=== PATIENT | female | born 1940 | race Caucasian/White ===

== ENCOUNTER 2016-05-13 17:37 | Observation (INO) ==
--- NOTE | 2016-05-13 18:13 | Emergency Department Note ---
START Narrative - START START: I examined this patient and my medical decision-making was reviewed with the DOUGHNUT DOUGH MIXER/PA/Advanced Practice Nurse/Resident Physician. I agree with the documented findings, disposition and treatment plan as described except to the extent set forth below. ED attending note: Patient seen with emergency medicine resident Dr. Floyd. Please see a copy of his dictation for details of the H&P, evaluation and management, and emergency department disposition of this patient. We independently had [id number] contact with the patient. Briefly: A 75-year-old nonsmoking female no primary pulmonary disease disorder by EMS from local urgent care for 1 month of exertional dyspnea. No sputum fever or chills. Physical examination is benign. Waiting on lab work x-rays and EKG. Patient stable, disposition pending
[2016-05-13 18:30] LABS: Basophils % 0.3 %; Eosinophils % 0.3 %; Hematocrit 34.8 % (35.3-44.9); Hemoglobin 10.7 g/dL (11.5-15.4); Immature Granulocytes % 0.7 % (0-4); Lymphocytes # 1.8 K/mcL (0.6-4.6); Mean Corpuscular HGB Conc 30.7 g/dL (31.6-35.5); Mean Corpuscular Hemoglobin 26.6 pg (28.0-33.3); Mean Corpuscular Volume 86.4 fL (83.0-100.0); Mean Platelet Volume 11.8 fL (9.4-12.4); Monocytes # 0.5 K/mcL (0.0-1.3); Monocytes % 5.3 %; Neutrophils # 7.4 K/mcL (1.6-8.9); Platelet Count 219 K/mcL (140-400); Red Blood Count 4.03 M/mcL (3.82-4.97); Red Cell Distribution Width 15.7 % (11.5-14.5); Segmented Neutrophils % 75.4 %
--- NOTE | 2016-05-13 18:33 | Emergency Department Note ---
Disposition Clinical Impression: Dyspnea, Pulmonary embolism Disposition: Admitted As Inpatient Condition: Good Referrals: Alexander Gallagher MD [Primary Care Provider] - Forms: ED Satisfaction Letter Time of Disposition: 19:46 SOB HPI - General Chief Complaint: ED Shortness of Breath/Dyspnea Stated Complaint: [id number] Time Seen by Provider: 05/13/16 17:40 Source: patient, EMS Mode of arrival: ambulatory Limitations: no limitations Nursing Notes Reviewed: Yes Vital Signs Reviewed: Yes - History of Present Illness 75-year-old female sent from urgent care for 1 month of exertional dyspnea. Patient reports that she has had difficulty with exertion over the last month. This is not associated with any chest pressure or shortness of breath. This is not worse when lying flat. There is no associated cough. There is no fever. There are no sick contacts. Patient has no history of COPD or emphysema or CHF. She denies any nausea, vomiting, diaphoresis. She denies any swelling. She denies any GI or symptoms. - Related Data Home Medications Medication Instructions Recorded Confirmed Atorvastatin Calcium [Lipitor] 80 mg PO HS 05/13/16 05/13/16 Ferrous Sulfate 325 mg PO DAILY 05/13/16 05/13/16 HYDROcodone/Acet 7.5/325 mg [[place] 1 tab PO TID PRN 05/13/16 05/13/16 7.5-325 mg] LORazepam [Ativan] 0.25 mg PO DAILY 05/13/16 05/13/16 LORazepam [Ativan] 0.5 mg PO HS 05/13/16 05/13/16 Montelukast [Singulair] 10 mg PO HS 05/13/16 05/13/16 Nadolol [Corgard] 40 mg PO HS 05/13/16 05/13/16 Omeprazole [PriLOSEC] 40 mg PO DAILY 05/13/16 05/13/16 PredniSONE 10 mg PO DAILY PRN 05/13/16 05/13/16 Sertraline [Zoloft] 25 mg PO DAILY 05/13/16 05/13/16 Valsartan/Hydrochlorothiazide 1 each PO DAILY 05/13/16 05/13/16 [Diovan Hct 320-25 mg Tablet] Allergies Allergy/AdvReac Type Severity Reaction Status Date / Time ampicillin Allergy Nausea Verified 05/13/16 15:56 nalbuphine [From Nubain] Allergy Nausea Verified 05/13/16 15:56 Penicillins Allergy Hives Verified 05/13/16 15:56 Sulfa (Sulfonamide Allergy Rash Verified 05/13/16 15:56 Antibiotics) All systems ED: reviewed and negative except as stated. Past Medical History - Past Medical History Attestation: Yes The following information was validated with the patient. Source: patient Medical history: Reports: hyperlipidemia, hypertension, renal disease Psychiatric history: Reports: anxiety - Social History Smoking Status: Never smoker Smokeless Tobacco Status: No Alcohol use: Reports: none Drug use: Reports: none Physical Exam - Head Head exam: atraumatic, normocephalic, normal inspection - Eye Eye exam: Present: normal appearance, PERRL, EOMI - ENT ENT exam: normal exam, normal oropharynx, mucous membranes moist - Neck Neck exam: Present: normal inspection, full ROM, trachea midline - Chest Chest inspection: Present: normal inspection, symmetric chest wall rise - Respiratory Respiratory exam: Clear to auscultation bilaterally without wheezes rales or rhonchi Cardiovascular Cardiovascular exam: Present: regular rate, normal rhythm, normal heart sounds - Abdominal Exam Abdominal exam: Present: soft, Non-Tender. Absent: tenderness, distention, guarding, rebound, rigidity - Extremities Exam Extremities exam: Present: normal inspection, full ROM - Expanded Lower Extremity Exam Hip/Pelvis exam: Present: normal inspection, full ROM - Back Exam Back exam: Present: normal inspection, full ROM. Absent: tenderness, CVA tenderness (R), CVA tenderness (L) - Neurological Exam Neurological exam: Present: alert, oriented X3, CN II-XII intact - Psychiatric Psychiatric exam: Present: normal affect, normal mood - Skin Skin exam: Present: warm, dry, intact, normal color - General Limitations: no limitations General appearance: alert, in no apparent distress Course - Reevaluation(s) Reevaluation #1: Chest x-ray from urgent care reviewed and was normal. Patient reports that urgent care physician was concerned for DVT given her shortness of breath. Wells score is 0. I understand this is not a rule out criteria, but patient has no risk factors for PE, signs of DVT, or abnormal vitals. Abdomen persistent dyspnea we will obtain a d-dimer. Reevaluation #2: D-dimer severely elevated over 7000. No findings on chest x-ray to account for this. She does not have any apparent DVT, but given her significantly elevated d-dimer with dyspnea I suspect that she likely has a pulmonary embolus. I give her 1 mg/kg of Lovenox to fully anticoagulate her. She does not have adequate kidney function this time to tolerate a CT of her chest. Admitting hospitalist is aware of this and agrees with rehydration overnight and likely CTA in the morning. She will receive a ventilation perfusion scan if she is unable to obtain a CTA tomorrow. Patient is stable for admission this time.. Accepted by [facility]. Time: 19:45 Vital Signs Temperature 98.1 F 05/13/16 17:37 Pulse Rate 70 05/13/16 17:37 Respiratory Rate 18 05/13/16 17:37 Blood Pressure 163/91 05/13/16 17:37 O2 Sat by Pulse Oximetry 92 L 05/13/16 17:37 Temperature 98.1 F 05/13/16 17:37 Pulse Rate 70 05/13/16 19:10 Respiratory Rate 18 05/13/16 19:10 Blood Pressure 139/72 05/13/16 19:10 O2 Sat by Pulse Oximetry 95 05/13/16 19:10 Oxygen Delivery Oxygen Delivery Room Air Shortness of Breath/Dyspnea - Lab Data Result diagrams: 05/13/16 18:09 05/13/16 18:09 Lab Results 05/13/16 05/13/16 05/13/16 Range/Units 18:09 18:09 18:09 WBC 9.8 (4.3-11.1) K/mcL RBC 4.03 (3.82-4.97) M/mcL Hgb 10.7 L (11.5-15.4) g/dL Hct 34.8 L (35.3-44.9) % MCV 86.4 (83.0-100.0) fL MCH 26.6 L (28.0-33.3) pg MCHC 30.7 L (31.6-35.5) g/dL RDW 15.7 H (11.5-14.5) % Plt Count 219 (140-400) K/mcL MPV 11.8 (9.4-12.4) fL Immature Gran % 0.7 (0-4) % Seg Neutrophils % 75.4 % Lymphocytes % 18.0 % Monocytes % 5.3 % Eosinophils % 0.3 % Basophils % 0.3 % Neutrophils # 7.4 (1.6-8.9) K/mcL Lymphocytes # 1.8 (0.6-4.6) K/mcL Monocytes # 0.5 (0.0-1.3) K/mcL Eosinophils # 0.0 (0.0-0.6) K/mcL Basophils # 0.0 (0.0-0.2) K/mcL D-Dimer (0-500) ng/mLFEU Sodium 143 (136-145) mEq/L Potassium 4.1 (3.5-4.5) mEq/L Chloride 109 (98-109) mEq/L Carbon Dioxide 21 (19-29) mEq/L BUN 27 H (7-20) mg/dL Creatinine 1.39 H (0.57-1.11) mg/dL Est GFR ( Amer) 45 L (> 60) Est GFR (Non-Af Amer) 37 L (> 60) BUN/Creatinine Ratio 19 (6-26) Glucose 103 H (70-99) mg/dL Calculated Osmolality 301 H (280-300) Calcium 9.7 (8.6-10.8) mg/dL Troponin I 0.02 (0-0.03) ng/mL 05/13/16 Range/Units 18:09 WBC (4.3-11.1) K/mcL RBC (3.82-4.97) M/mcL Hgb (11.5-15.4) g/dL Hct (35.3-44.9) % MCV (83.0-100.0) fL MCH (28.0-33.3) pg MCHC (31.6-35.5) g/dL RDW (11.5-14.5) % Plt Count (140-400) K/mcL MPV (9.4-12.4) fL Immature Gran % (0-4) % Seg Neutrophils % % Lymphocytes % % Monocytes % % Eosinophils % % Basophils % % Neutrophils # (1.6-8.9) K/mcL Lymphocytes # (0.6-4.6) K/mcL Monocytes # (0.0-1.3) K/mcL Eosinophils # (0.0-0.6) K/mcL Basophils # (0.0-0.2) K/mcL D-Dimer 7565 H (0-500) ng/mLFEU Sodium (136-145) mEq/L Potassium (3.5-4.5) mEq/L Chloride (98-109) mEq/L Carbon Dioxide (19-29) mEq/L BUN (7-20) mg/dL Creatinine (0.57-1.11) mg/dL Est GFR ( Amer) (> 60) Est GFR (Non-Af Amer) (> 60) BUN/Creatinine Ratio (6-26) Glucose (70-99) mg/dL Calculated Osmolality (280-300) Calcium (8.6-10.8) mg/dL Troponin I (0-0.03) ng/mL - Radiology Data Radiology results reviewed: Yes I reviewed the patient's radiology results. - EKG Data EKG attestation: Yes I reviewed and interpreted this EKG. EKG results narrative: Normal sinus rhythm at 63 with normal axis and intervals. No ST elevation or depression. No T-wave inversions or pathologic Q waves. Unchanged from 2006.
[2016-05-13 18:43] LABS: Calcium 9.7 mg/dL (8.6-10.8); Potassium 4.1 mEq/L (3.5-4.5)
[2016-05-13] MEDS ORDERED: *HR* Enoxaparin 120 MG/0.8 ML SYRINGE SQ STA (19:29)
[2016-05-13] MEDS ORDERED: 0.9 % Sodium Chloride 1,000 ML IVC SCH (19:45)
[2016-05-13] MEDS ORDERED: Naloxone 0.4 MG/ML INJ IVP PRN (20:58)
[2016-05-13] MEDS ORDERED: Acetaminophen 325 MG TABLET PO PRN (20:58)
[2016-05-13] MEDS ORDERED: *HR* HYDROcodone/Acet 7.5/325 mg TABLET PO PRN (21:00)
[2016-05-13] MEDS ORDERED: *HR* LORazepam 0.5 MG TABLET PO SCH (21:00)
--- NOTE | 2016-05-13 21:14 | Internal Med History&Physical ---
Date of Encounter: 05/13/16 Time of Encounter: 21:03 Assessment and Plan (1) SOB (shortness of breath) Current visit: No Status: Acute Patient dyspnea on exertion that started one month ago, and significantly worsened over the last few days. EKG showed NSR with HR of 63, no ST elevations or depressions and no changes since her 2006 EKG. CXR showed no acute cardiopulmonary abnormality. Troponin negative at 0.02. D-Dimer elevated to 7565, raising concern for pulmonary embolus. Weight-based Lovenox given at 110mg SQ for 1mg/kg Hydrate overnight to protect kidney function 1L 0.9NS at 250mL/hr followed by maintenance fluids of 0.9NS at 125mL/hr, Check chemistry in the morning. VQ scan ordered for the morning. Consider CTA if kidney function will tolerate after hydration Echocardiogram ordered (2) Hypertension Current visit: Yes Status: Acute Continue home doses of valsartan, nadolol and hydrochlorothiazide. Qualifiers: Hypertension type: essential hypertension Qualified Code(s): I10 - Essential (primary) hypertension (3) Chronic kidney disease Current visit: Yes Status: Acute Patient's creatinine 1.39, consistent with her baseline. Patient reports her kidneys were damaged as a result of her use of celebrex. She is no longer taking Celebrex for arthritis. Plan for CTA tomorrow to evaluate for PE, will hydrate over night and recheck Chemistry in the morning. Avoid NSAIDS. Qualifiers: Chronic kidney disease stage: stage 2 (mild) Qualified Code(s): N18.2 - Chronic kidney disease, stage 2 (mild) (4) DVT prophylaxis Current visit: Yes Status: Acute Ambulate as tolerated Anti-embolic stockings Weight based lovenox at 1mg/kg for 110mg SQ given for suspicion of PE Internal Medicine - H&P: HPI Chief complaint: shortness of breath Admitted From: Emergency Dept Plans for Post Hospital Care: Home History of present illness: Ms. Medina is a 75 year old female with HTN, hyperlipidemia, CKD, GERD who presented to the ED for increasing shortness of breath with activity. She reports it started about 1 month ago, but reports it worsened in the last 3 days. She states she does not feel short of breath at rest at all, only when walking. She denies any cough, fever, chills, sweats. She denies any chest pain, palpitations or headache. Of note she reports she had a previous experience with shortness of breath which was found to be a massive hiatal hernia putting pressure on her lungs, she reports she had surgery to repair it by Dr. Winters at [facility] in November, and had no breathing difficulty after the surgery. Thinking this might be her issue, she saw Dr. Winters again on Wednesday and had a barium study done, which was reportedly normal. Evaluation in the ED showed EKG with NSR, HR 63, no ST elevations or depressions and no changes from her EKG in 2006. CXR was negative for acute abnormality. Troponin was negative at 0.02. D-dimer was very elevated at 7565, leading to concern for pulmonary embolus. Patient has renal insufficiency with creatinine of 1.39, so plan is to hydrate overnight and get a CTA in the morning. On exam, she is alert and oriented X 3 in no distress, lungs are clear to auscultation bilaterally, heart has regular rate and rhythm. She is satting 95% on room air at rest. Patient's case discussed with Dr. Garner and he agrees with the assessment and plan set forth. Past Med Surg Social Fam HX - Past Medical History Medical history: GERD, hyperlipidemia, hypertension, renal disease Psychiatric history: anxiety - Past Surgical History Surgical History: appendectomy, hysterectomy, knee replacement, orthopedic, other (shoulder ), other (hiatal hernia repair) - Social History Smoking Status: Never smoker Smokeless Tobacco Status: No Alcohol use: none Drug use: none - Family History Mother Living Status: Age at : 80 Hx Family Cardiac Disorders: Yes Father Living Status: Age at : 72 Hx Family Respiratory Disorders: Yes Internal Medicine - H&P: Meds Atorvastatin Calcium [Lipitor] 80 mg PO HS 05/13/16 [History] Ferrous Sulfate 325 mg PO DAILY 05/13/16 [History] HYDROcodone/Acet 7.5/325 mg [[place] 7.5-325 mg] 1 tab PO TID PRN 05/13/16 [ History] LORazepam [Ativan] 0.25 mg PO DAILY 05/13/16 [History] LORazepam [Ativan] 0.5 mg PO HS 05/13/16 [History] Montelukast [Singulair] 10 mg PO HS 05/13/16 [History] Nadolol [Corgard] 40 mg PO HS 05/13/16 [History] Omeprazole [PriLOSEC] 40 mg PO DAILY 05/13/16 [History] PredniSONE 10 mg PO DAILY PRN 05/13/16 [History] Sertraline [Zoloft] 25 mg PO DAILY 05/13/16 [History] Valsartan/Hydrochlorothiazide [Diovan Hct 320-25 mg Tablet] 1 each PO DAILY [History] Allergies ampicillin Allergy (Verified 05/13/16 15:56) Nausea nalbuphine [From Nubain] Allergy (Verified 05/13/16 15:56) Nausea Penicillins Allergy (Verified 05/13/16 15:56) Hives Sulfa (Sulfonamide Antibiotics) Allergy (Verified 05/13/16 15:56) Rash All Systems PM: A 10-system review of systems was performed and is negative for pertinent findings except as documented above in the HPI. - Constitutional Constitutional: no chills, no fever(s), no night sweats - EENT Eyes: no change in vision, no discharge, no pain, no photophobia Ears: no ear discharge, no ear pain, no tinnitus Nose, mouth and throat: no dysphagia, no nasal discharge, no neck pain, no sore throat - Cardiovascular Cardiovascular ROS IM: dyspnea on exertion, no chest pain, no diaphoresis, no dyspnea, no lightheadedness, no palpitations, no syncope - Respiratory Respiratory: dyspnea on exertion, no cough, no dyspnea, no wheezing, no excessive phlegm production - Gastrointestinal Gastrointestinal: no abdominal pain, no diarrhea, no hematemesis, no hematochezia, no melena, no nausea, no vomiting - Genitourinary Genitourinary: no change in urinary stream, no dysuria, no flank pain, no hematuria - Musculoskeletal Musculoskeletal ROS IM: no numbness, no tingling - Integumentary Integumentary IM: no rash, no unusual bruising - Neurological Neurological ROS: no confusion, no convulsions, no focal weakness, no numbness, no tingling, no tremor(s) - Hematologic/Lymphatic Hematologic/Lymphatic: no easy bruising - Constitutional Vitals: Temp Pulse Resp BP Pulse Ox 97.6 F 62 16 151/90 94 L 05/13/16 21:01 05/13/16 21:01 05/13/16 21:01 05/13/16 21:01 05/13/16 21:01 General appearance: Present: A&O X 3, no acute distress - Head Head exam: Present: atraumatic, normocephalic - Eye Eye exam: Present: PERRL, conjuntiva pink, sclera anicteric Pupils: Present: PERRL - Neck Neck exam general surgery: Present: supple, trachea midline. Absent: lymphadenopathy - Respiratory Respiratory exam: Present: CTAB. Absent: accessory muscle use, rales, rhonchi, wheezes - Cardiovascular Cardiovascular exam: Present: RRR, +S1, +S2. Absent: diastolic murmur, gallop, rubs, systolic murmur - GI/Abdominal GI/Abdominal exam: Present: normal bowel sounds, soft, no peritoneal signs. Absent: distended, tenderness - Extremities Exam Extremities exam: Present: warm, radial pulses palpable and symetrical. Absent : calf tenderness, cyanotic, pedal edema - Neurological Exam Neurological exam: Present: CN II-XII intact, oriented X3, no focal deficits. Absent: facial droop, speech deficit - Skin Skin exam: Present: dry, intact Internal Med - H&P Results - Labs CBC & Chem 7: 05/13/16 18:09 05/13/16 18:09 Labs: All Lab Results (24 Hours) 05/13/16 05/13/16 05/13/16 Range/Units 18:09 18:09 18:09 WBC 9.8 (4.3-11.1) K/mcL RBC 4.03 (3.82-4.97) M/mcL Hgb 10.7 L (11.5-15.4) g/dL Hct 34.8 L (35.3-44.9) % MCV 86.4 (83.0-100.0) fL MCH 26.6 L (28.0-33.3) pg MCHC 30.7 L (31.6-35.5) g/dL RDW 15.7 H (11.5-14.5) % Plt Count 219 (140-400) K/mcL MPV 11.8 (9.4-12.4) fL Immature Gran % 0.7 (0-4) % Seg Neutrophils % 75.4 % Lymphocytes % 18.0 % Monocytes % 5.3 % Eosinophils % 0.3 % Basophils % 0.3 % Neutrophils # 7.4 (1.6-8.9) K/mcL Lymphocytes # 1.8 (0.6-4.6) K/mcL Monocytes # 0.5 (0.0-1.3) K/mcL Eosinophils # 0.0 (0.0-0.6) K/mcL Basophils # 0.0 (0.0-0.2) K/mcL D-Dimer (0-500) ng/mLFEU Sodium 143 (136-145) mEq/L Potassium 4.1 (3.5-4.5) mEq/L Chloride 109 (98-109) mEq/L Carbon Dioxide 21 (19-29) mEq/L BUN 27 H (7-20) mg/dL Creatinine 1.39 H (0.57-1.11) mg/dL Est GFR ( Amer) 45 L (> 60) Est GFR (Non-Af Amer) 37 L (> 60) BUN/Creatinine Ratio 19 (6-26) Glucose 103 H (70-99) mg/dL Calculated Osmolality 301 H (280-300) Calcium 9.7 (8.6-10.8) mg/dL Troponin I 0.02 (0-0.03) ng/mL 05/13/16 Range/Units 18:09 WBC (4.3-11.1) K/mcL RBC (3.82-4.97) M/mcL Hgb (11.5-15.4) g/dL Hct (35.3-44.9) % MCV (83.0-100.0) fL MCH (28.0-33.3) pg MCHC (31.6-35.5) g/dL RDW (11.5-14.5) % Plt Count (140-400) K/mcL MPV (9.4-12.4) fL Immature Gran % (0-4) % Seg Neutrophils % % Lymphocytes % % Monocytes % % Eosinophils % % Basophils % % Neutrophils # (1.6-8.9) K/mcL Lymphocytes # (0.6-4.6) K/mcL Monocytes # (0.0-1.3) K/mcL Eosinophils # (0.0-0.6) K/mcL Basophils # (0.0-0.2) K/mcL D-Dimer 7565 H (0-500) ng/mLFEU Sodium (136-145) mEq/L Potassium (3.5-4.5) mEq/L Chloride (98-109) mEq/L Carbon Dioxide (19-29) mEq/L BUN (7-20) mg/dL Creatinine (0.57-1.11) mg/dL Est GFR ( Amer) (> 60) Est GFR (Non-Af Amer) (> 60) BUN/Creatinine Ratio (6-26) Glucose (70-99) mg/dL Calculated Osmolality (280-300) Calcium (8.6-10.8) mg/dL Troponin I (0-0.03) ng/mL
[2016-05-13] MEDS: Famotidine 20 MG TABLET PO SCH (23:39)
[2016-05-14] MEDS ORDERED: 0.9 % Sodium Chloride 1,000 ML IVC SCH (00:01)
[2016-05-14 06:06] LABS: Basophils % 0.3 %; Eosinophils # 0.2 K/mcL (0.0-0.6); Eosinophils % 1.8 %; Hemoglobin 9.7 g/dL (11.5-15.4); Immature Granulocytes % 0.7 % (0-4); Lymphocytes # 3.2 K/mcL (0.6-4.6); Lymphocytes % 32.8 %; Mean Corpuscular HGB Conc 30.3 g/dL (31.6-35.5); Mean Corpuscular Hemoglobin 26.1 pg (28.0-33.3); Mean Corpuscular Volume 86.3 fL (83.0-100.0); Mean Platelet Volume 11.7 fL (9.4-12.4); Monocytes # 0.8 K/mcL (0.0-1.3); Monocytes % 7.6 %; Neutrophils # 5.6 K/mcL (1.6-8.9); Platelet Count 196 K/mcL (140-400); Red Blood Count 3.71 M/mcL (3.82-4.97); Red Cell Distribution Width 15.8 % (11.5-14.5); Segmented Neutrophils % 56.8 %
[2016-05-14] MEDS: Famotidine 20 MG TABLET PO SCH (08:40)
[2016-05-14 08:41] LABS: Calcium 9.3 mg/dL (8.6-10.8); Potassium 3.5 mEq/L (3.5-4.5)
[2016-05-14] MEDS ORDERED: hydroCHLOROthiazide 25 MG TABLET PO SCH (09:00)
[2016-05-14] MEDS ORDERED: Valsartan 160 MG TABLET PO SCH ×2 (09:00)
[2016-05-14] MEDS ORDERED: *HR* Rivaroxaban 15 MG TABLET PO SCH (09:00)
[2016-05-14] MEDS ORDERED: *HR* LORazepam 0.5 MG TABLET PO SCH (09:00)
[2016-05-14] MEDS: Perflutren Lipid Microsphere 1.3 ML in 0.9 % Sodium Chloride 8.7 ML IVP ONE ×2 (10:57→12:10)
--- NOTE | 2016-05-14 11:01 | Electrocardiograph Report ---
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
--- NOTE | 2016-05-14 13:52 | Discharge Summary ---
Date of Encounter: 05/14/16 Time of Encounter: 11:55 - Discharge Diagnosis (1) Acute respiratory failure with hypoxia Priority: Primary Status: Acute Comments: Secondary to PE Patient with CKD II, CTA not done due to renal dysfunction Patient presented with about a month history of dyspnea on exertion She had no signs or symptoms of pneumonia, her CXR was unremarkable A VQ scan done confirmed a very high probability of bilateral PE Troponin is negative ECHO was ordered and showed LVEF 65-70%, Mild LVDD, Normal RV systolic function and size, Mild AR, MIld TR, Mildy dilated left atrium. Severe Pulm HTN TVSP 67- 77mmHg She is stable at rest but requires ~2L of oxygen on exertion, she will be discharged on O2 Her PCP needs to reevaluate the need for oxygen in a few weeks as anticoagulation has been started She received one dose of therapeutic LOvenox She will be discharged home on Xarelto Anticipate duration for 3-6 months as this PE is unprovoked Patient extensively educated about plan of care, verbalizes understanding Other chronic conditions stable (2) Pulmonary embolism Priority: Primary Status: Acute Comments: Management as above Qualifiers: Pulmonary embolism type: other Chronicity: acute Acute cor pulmonale presence: without acute cor pulmonale Qualified Code(s): I26.99 - Other pulmonary embolism without acute cor pulmonale (3) Chronic kidney disease Priority: Secondary Status: Chronic Comments: Chronic, stable Qualifiers: Chronic kidney disease stage: stage 2 (mild) Qualified Code(s): N18.2 - Chronic kidney disease, stage 2 (mild) (4) Hypertension Priority: Secondary Status: Chronic Qualifiers: Hypertension type: essential hypertension Qualified Code(s): I10 - Essential (primary) hypertension (5) Obesity (BMI 30-39.9) Priority: Secondary Status: Chronic (6) Hemorrhoids with complication Priority: Secondary Status: Chronic Comments: Patient with one unwitnessed bowel movement said to have been brown with some slight blood Chart review showed EGD in 2011 unremarkable, but Colonoscopy in 12/2011 revealed multiple joshua diverticula and smal internal and external hemorrhoids Patient is hemodynamically stable and there has been no further bowel movements of same nature The benefits of continuation of anticoagulation for her PE outweighs her risks for GI Bleed at this time She may represent to ER if she has torrential or mitchel hematochezia - Discharge Medications Home Medications: Atorvastatin Calcium [Lipitor] 80 mg PO HS 05/13/16 [History] Ferrous Sulfate 325 mg PO DAILY 05/13/16 [History] HYDROcodone/Acet 7.5/325 mg [[place] 7.5-325 mg] 1 tab PO TID PRN 05/13/16 [ History] LORazepam [Ativan] 0.25 mg PO DAILY 05/13/16 [History] LORazepam [Ativan] 0.5 mg PO HS 05/13/16 [History] Montelukast [Singulair] 10 mg PO HS 05/13/16 [History] Nadolol [Corgard] 40 mg PO HS 05/13/16 [History] Omeprazole [PriLOSEC] 40 mg PO DAILY 05/13/16 [History] PredniSONE 10 mg PO DAILY PRN 05/13/16 [History] Sertraline [Zoloft] 25 mg PO DAILY 05/13/16 [History] Valsartan/Hydrochlorothiazide [Diovan Hct 320-25 mg Tablet] 1 each PO DAILY [History] Allergies/Adverse Reactions: Allergies ampicillin Allergy (Verified 05/13/16 15:56) Nausea nalbuphine [From Nubain] Allergy (Verified 05/13/16 15:56) Nausea Penicillins Allergy (Verified 05/13/16 15:56) Hives Sulfa (Sulfonamide Antibiotics) Allergy (Verified 05/13/16 15:56) Rash Procedures/tests Complete & Pending: Procedures Performed prior 72 hours Category Date Time Status VQ Scan [NM pul vent and perfuse] [NM] Routine Exams 05/13/16 23:34 Completed EV echocardiogram w enhance Routine Y 05/14/16 23:34 Completed Date of admission: 05/13/16 20:03 Primary care physician: Alexander Gallagher MD Consults: 05/14/16 09:25 Consult for Pharmacy Education [CONS] Routine Reason for Consult: xeralto vs. coumadin and how it disolves PE Time Notified: 09:26 Call Completed: Yes 05/14/16 12:20 Consult to Plumbing Contractor [CONS] Routine Reason for SW Consult: qualified for home o2 Discharging clinician: Jorge Landis Anticipated date of discharge: 05/14/16 - Patient Status Disposition: Home, Self-Care Condition: Good Functional capacity at discharge: independent ambulation Overall status at discharge: patient is back to baseline - Discharge Instructions Instructions: Rivaroxaban (By mouth), Pulmonary Embolism (DC) Follow Up With: Alexander Gallagher MD [Primary Care Provider] - 05/19/16 10:00 am (Please take your green discharge folder with you to your appointment. You will seeing Aliyah Albert CNP. ) - Diet and Activity Activity: resume usual activities as tolerated, wear oxygen at all times Diet: low salt diet Interval History: See below Hospital course: Ms. Medina is a 75 year old female PMH of Obesity, CKD II HTN, HLD, GERD. She was hospitalized for work up for dysnea on exertion VQ scan showed High probability for PE and ECHO showed Pulmonary HTN with normal RV size and function. Troponin is negative She is hemodynamically stable Other work up negative Rest of details as in individual diagnoses - Time Spent with Patient Total time spent providing and/or coordinating discharge services: Less than 30 minutes - Constitutional Vitals: Temp Pulse Resp BP Pulse Ox 97.6 F 70 16 121/78 96 05/14/16 11:59 05/14/16 11:59 05/14/16 11:59 05/14/16 11:59 05/14/16 11:59 General appearance: Present: A&O X 3, no acute distress, obese - Head Head exam: Present: atraumatic, normocephalic - Eye Eye exam: Present: PERRL, conjuntiva pink, sclera anicteric Pupils: Present: PERRL - Neck Neck exam general surgery: Present: supple, trachea midline. Absent: lymphadenopathy - Respiratory Respiratory exam: Present: CTAB. Absent: accessory muscle use, rales, rhonchi, wheezes - Cardiovascular Cardiovascular exam: Present: RRR, +S1, +S2. Absent: diastolic murmur, gallop, rubs, systolic murmur - GI/Abdominal GI/Abdominal exam: Present: normal bowel sounds, soft, no peritoneal signs. Absent: distended, tenderness - Extremities Exam Extremities exam: Present: warm, radial pulses palpable and symetrical. Absent : calf tenderness, cyanotic, pedal edema - Neurological Exam Neurological exam: Present: alert, oriented X3, no focal deficits, strengths equal and symetr throughout. Absent: pronater drift, facial droop, speech deficit - Skin Skin exam: Present: dry
--- NOTE | 2016-05-14 14:10 | ECHO - Doppler Report ---
Echo with Imaging Enhancement Agent Name: Taisha Medina Date of Study: 05/14/2016 Date: 1940 Ht: 67.0 in Medical Record#: [id number] Age: 75 Wt: 242.0 lb Gender: Female BSA: 2.19 Order #: [id number] Location: [facility] Room #: [id number] Reading Physician: Jose Lamas DO, FACC, SOFIA ROBERTS [employer] Milling Machine Operator: Candi Kang, RVT Ordering Physician: Tanesha Cantor CNP Primary Physician: Alexander Gallagher MD Impressions: LVEF 65%. Normal LV chamber size, wall thickness and function. Mild left ventricular diastolic dysfunction. Normal right ventricular structure and function. Mild aortic regurgitation. Mild tricuspid regurgitation. Severe pulmonary hypertension. Estimated RVSP is 67-77 mmHg. Left Ventricular Wall Motion: Rest Echo Findings All wall segments showed normal motion. Findings: Study Quality * Technically adequate exam. ECG Findings * Normal sinus rhythm. Left Ventricle * LVEF 65%. * Normal LV chamber size, wall thickness and function. * Mild left ventricular diastolic dysfunction. Right Ventricle * Normal right ventricular structure and function. Left Atrium * Mildly dilated left atrium. Right Atrium * Mildly dilated right atrium. Interatrial Septum * Interatrial septum not well evaluated. Aortic Valve * Trileaflet aortic valve. * Mildly sclerotic aortic valve leaflets. * Mild aortic regurgitation. * No aortic stenosis. Mitral Valve * Mild mitral annular calcification * No mitral regurgitation. * No mitral stenosis. Tricuspid Valve * Normal tricuspid valve structure. * Mild tricuspid regurgitation. * Severe pulmonary hypertension. * Estimated RVSP is 67-77 mmHg. * Estimated RA pressure is 10-20 mmHg. Pulmonic Valve * Pulmonic valve is not well visualized. * No pulmonic regurgitation. Aorta * Normally sized aortic root. Pericardium * The pericardium appears normal. IVC * The IVC is dilated. * < 50% respiratory change. Pulmonary Artery * Normal visualized portions of the main pulmonary artery. History Hypertension Hypercholesteremia Family History of CAD 11/2013 a Previous Echo was performed. Contrast: Definity 1.3 ml in 8.7 ml of saline 2 ml. Measurements: BP: 108/ 69 2D Normal Values RVIDd: 3.10 cm <2.7 cm IVSd: 1.10 cm 0.6 - 1.0 cm LVIDd: 5.20 cm 3.7 - 5.6 cm LVPWd: 1.10 cm 0.6 - 1.1 cm LVIDs: 3.70 cm 1.5 - 3.6 cm AO: 2.60 cm < 4.0 cm LA: 3.80 cm 2.0 - 4.0cm %FS: 28.80 cm >25 % LA volume: 54 Mitral Valve Dec Time:197.00 msec Peak E:.71 m/sec Peak A:.82 m/sec E/A Ratio:0.9 E/E' Lat Ratio:10 E/E' Med Ratio:8.97 Tricuspid Valve TV Regurg Peak Grad: 57.00mmHg TV Regurg Peak Dimas: 3.79m/sec Updated by Jose Lamas DO, FACEva, ARMANDO, SOFIA on 05/14/2016 2:03:25 PM electronically signed on 05/14/2016 2:04:16 PM with status of Final Wall Motion Valladares: 1=Normal, 2=Hypokinesis, 3=Akinesis, 4=Dyskinesis, 5=Aneurysmal, 6=Hyperkinetic, X=Not Visualized (Blank)=Missing
[2016-05-14 16:30] VITALS: BP 123/76
[2016-05-14] MEDS ORDERED: Famotidine 20 MG TABLET PO SCH (21:00)
== END 2016-05-14 18:23 | disposition home or self-care (01) ==
LOC: 2ANU 17:37 → EMEROO 17:37 → 2ANU 20:25
PROVIDERS: ADMIT Nurse Practitioner Family; ATTEND Internal Medicine

== ENCOUNTER 2021-05-02 09:20 | Observation (INO) ==
[2021-05-02] MEDS ORDERED: Aspirin 81 MG TAB.CHEW PO ONE (09:35)
[2021-05-02 09:37] VITALS: O2SAT 94
[2021-05-02 09:51] LABS: Basophils # 0.1 K/mcL (0.0-0.2); Basophils % 0.6 %; Eosinophils # 0.5 K/mcL (0.0-0.6); Eosinophils % 5.8 %; Hematocrit 39.9 % (35.3-44.9); Immature Granulocytes % 0.4 % (0-4); Lymphocytes # 1.9 K/mcL (0.6-4.6); Lymphocytes % 20.9 %; Mean Corpuscular HGB Conc 32.6 g/dL (31.6-35.5); Mean Corpuscular Hemoglobin 31.9 pg (28.0-33.3); Mean Corpuscular Volume 97.8 fL (83.0-100.0); Mean Platelet Volume 11.3 fL (9.4-12.4); Monocytes # 0.7 K/mcL (0.0-1.3); Monocytes % 7.9 %; Neutrophils # 5.8 K/mcL (1.6-8.9); Platelet Count 250 K/mcL (140-400); Red Blood Count 4.08 M/mcL (3.82-4.97); Red Cell Distribution Width 13.4 % (11.5-14.5); Segmented Neutrophils % 64.4 %
[2021-05-02 09:58] LABS: INR 1.3; Prothrombin Time 14.1 Seconds (9.4-12.1)
[2021-05-02 10:01] LABS: Activated Partial Thrombo Time 33.5 Seconds (26.0-36.0)
[2021-05-02 10:12] LABS: BUN/Creatinine Ratio 14 (6-26); Blood Urea Nitrogen 17 mg/dL (8-23); Calcium 9.6 mg/dL (8.6-10.3); Carbon Dioxide 28 mEq/L (23-29); Chloride 104 mEq/L (98-107); Glucose 101 mg/dL (70-105); Osmolality,Calculated 292 (280-300); Potassium 4.1 mEq/L (3.5-5.1); Sodium 140 mEq/L (136-145); eGFR For African Americans 51 (> 60); eGFR For Non-African Americans 42 (> 60)
[2021-05-02 10:14] LABS: Troponin I < 0.03 ng/mL (< 0.04)
[2021-05-02] MEDS ORDERED: Nitroglycerin 0.4 MG TAB.SUBL SL PRN (10:51)
[2021-05-02] MEDS ORDERED: Ondansetron ODT 4 MG TAB.RAPDIS SL PRN (11:23)
[2021-05-02] MEDS ORDERED: Melatonin 3 MG TABLET PO PRN (11:23)
[2021-05-02] MEDS ORDERED: Naloxone 0.4 MG/ML INJ IVP PRN (11:23)
[2021-05-02 13:57] LABS: Albumin/Globulin Ratio 1.4 (1.1-2.2); Bilirubin,Direct 0.2 mg/dL (0.0-0.2); Bilirubin,Indirect 0.6 mg/dL (0.0-1.0); Bilirubin,Total 0.8 mg/dL (0.3-1.0); Globulin 2.8 g/dL (2.4-3.5); Total Protein 6.8 g/dL (6.4-8.9)
[2021-05-02 15:00] VITALS: BP 119/75; PULSE 72; TEMP 98
== END 2021-05-02 18:02 | disposition home or self-care (01) ==
LOC: 3BNU 09:20 → EMEROOARM 09:20 → 3BNU 12:22
PROVIDERS: ADMIT Student in an Organized Health Care Education/Training Program; ATTEND Student in an Organized Health Care Education/Training Program